=== PATIENT | male | born 1985 | race Caucasian/White ===

== ENCOUNTER 2018-12-28 15:52 | Outpatient (REF) | payer OTHER, SELFPAY ==
[2018-12-28 18:45] LABS: HCT 41.4 % (40.0-50.0); HGB 14.1 g/dL (13.5-17.5); Mean Corp. HGB Concentration 34.1 g/dL (32.0-36.0); Mean Corpuscular Hemoglobin 31.8 pg (27.0-33.0); Mean Corpuscular Volume 93.5 fL (80-95); Platelet Count 148 x1000/uL (130-400); RBC 4.43 m/cumm (4.50-6.00); RBC Distribution Width 12.8 % (11.8-14.1); White Blood Cell Count 5.46 k/cumm (4.4-10.8)
[2018-12-28 19:08] LABS: ALT 34 U/L (12-78); AST 49 U/L (15-37); Albumin 4.5 g/dL (3.4-5.0); Alkaline Phosphatase 67 U/L (46-116); Anion Gap 9.7 mmol/L (3-11); BUN 15 mg/dL (7-18); Bilirubin, Total 0.7 mg/dL (0.2-1.0); CO2 26.3 mmol/L (21.0-32.0); CREATININE 0.98 mg/dL (0.70-1.30); Calcium 9.1 mg/dL (8.5-10.1); Chloride 105 mmol/L (98-107); Glucose 89 mg/dL (70-100); Potassium 4.4 mmol/L (3.5-5.1); Sodium 141 mmol/L (136-145); TSH (W/Ref FT4) 1.09 uIU/mL (0.358-3.74); Total Protein 7.9 g/dL (6.4-8.2)
[2018-12-31 13:00] LABS: Hepatitis B Surface Ag Negative (NEGAT)
[2018-12-31 13:07] LABS: HIV-1/2 Ag & Ab Screen Negative (NEGAT)
[2018-12-31 13:08] LABS: Hepatitis C Ab w Rflx HCV PCR Reactive (NEGAT)
== END 2018-12-28 16:12 ==
LOC: NCHCN 15:52
PROVIDERS: PCP Family Medicine; Visit Provider Family Medicine
DX: R53.83 Other fatigue (principal); R74.8 Abnormal levels of other serum enzymes; F11.20 Opioid dependence, uncomplicated; Z11.59 Encounter for screening for other viral diseases; Z11.4 Encounter for screening for human immunodeficiency virus [HIV]
CPT/HCPCS: 80053; 85027; 86803; 87340; 87389; 84443; 87522

== ENCOUNTER 2019-01-03 07:01 | Outpatient (CLI) | payer OTHER, SELFPAY ==
--- NOTE | 2019-01-03 09:00 | DI.RAD_ITS ---
SYMPTOM/DIAGNOSIS: CHRONIC LOW BACK PAIN, M54.5 LUMBAR SPINE: AP, lateral and bilateral oblique views. No priors. There are five lumbar type vertebral bodies. There is normal alignment. No spondylolysis or spondylolisthesis is seen. The vertebral bodies, disc spaces and posterior elements are well maintained. The bones are normally mineralized. IMPRESSION: Normal examination.
== END 2019-01-03 07:21 ==
PROVIDERS: PCP Family Medicine; Visit Provider Family Medicine
DX: M54.5 Low back pain (principal)
CPT/HCPCS: 72110

== ENCOUNTER 2019-01-23 15:34 | Outpatient (REF) | payer OTHER, SELFPAY ==
[2019-01-25 10:31] LABS: HBs Antibody, Quant 191.1 mIU/mL; Hep A Total Ab w Rflx IgM Negative (NEGAT); Hep B Core Antibody Negative (NEGAT); Hepatitis B Surface Ab Positive
[2019-01-25 18:04] LABS: HCV Genotype 1a (Undetected)
== END 2019-01-23 15:54 ==
LOC: NCHCN 15:34
PROVIDERS: PCP Family Medicine; Visit Provider Family Medicine
DX: B18.2 Chronic viral hepatitis C (principal)
CPT/HCPCS: 82172; 82247; 82977; 83010; 83883; 84460; 86704; 86706; 86709; 87521

== ENCOUNTER 2019-02-20 16:06 | Outpatient (REF) | payer OTHER, SELFPAY ==
[2019-02-23 10:25] LABS: ALT 79 U/L (7-55); ActiTest Grade A1-A2; ActiTest Interpretation minimal activity; ActiTest Score 0.45; Alpha-2-Macroglobulin 204 mg/dL (100 - 280); Apoliprotein A1 157 mg/dL (>=120); Bilirubin, Total 0.7 mg/dL (<=1.2); FibroTest Interpretation no fibrosis; FibroTest Score 0.26; FibroTest Stage F0-F1; GGT 45 U/L (8 - 61); Haptoglobin 73 mg/dL (30 - 200)
== END 2019-02-20 16:26 ==
LOC: NCHCN 16:06
PROVIDERS: PCP Family Medicine; Visit Provider Family Medicine
DX: B18.2 Chronic viral hepatitis C (principal)
CPT/HCPCS: 82172; 82247; 82977; 83010; 83883; 84460

== ENCOUNTER 2019-06-05 14:11 | Outpatient (REF) | payer OTHER, SELFPAY ==
[2019-06-05 19:59] LABS: ALT 15 U/L (12-78); AST 18 U/L (15-37); Albumin 4.6 g/dL (3.4-5.0); Alkaline Phosphatase 69 U/L (46-116); Anion Gap 7.4 mmol/L (3-11); BUN 11 mg/dL (7-18); Bilirubin, Total 0.9 mg/dL (0.2-1.0); CO2 29.6 mmol/L (21.0-32.0); CREATININE 0.96 mg/dL (0.70-1.30); Calcium 9.6 mg/dL (8.5-10.1); Chloride 105 mmol/L (98-107); Glucose 103 mg/dL (70-100); Potassium 4.4 mmol/L (3.5-5.1); Sodium 142 mmol/L (136-145); Total Protein 7.7 g/dL (6.4-8.2)
[2019-06-05 20:04] LABS: HCT 41.6 % (40.0-50.0); HGB 14.3 g/dL (13.5-17.5); Mean Corp. HGB Concentration 34.4 g/dL (32.0-36.0); Mean Corpuscular Hemoglobin 31.9 pg (27.0-33.0); Mean Corpuscular Volume 92.9 fL (80-95); Mean Platelet Volume 12.4 fL (8.0-11.0); Platelet Count 139 x1000/uL (130-400); RBC 4.48 m/cumm (4.50-6.00); White Blood Cell Count 4.44 k/cumm (4.4-10.8)
[2019-06-08 08:15] LABS: HCV RNA Detection Quantitative Undetected IU/mL (UNDECT)
== END 2019-06-05 14:31 ==
LOC: NCHCN 14:11
PROVIDERS: PCP Family Medicine; Visit Provider Family Medicine
DX: B18.2 Chronic viral hepatitis C (principal)
CPT/HCPCS: 80053; 85027; 87522

== ENCOUNTER 2019-10-09 18:00 | Outpatient (REF) | payer OTHER, SELFPAY ==
[2019-10-09 16:54] LABS: HCT 42.8 % (40.0-50.0); HGB 14.3 g/dL (13.5-17.5); Mean Corp. HGB Concentration 33.4 g/dL (32.0-36.0); Mean Corpuscular Hemoglobin 31.6 pg (27.0-33.0); Mean Corpuscular Volume 94.7 fL (80-95); Mean Platelet Volume 11.9 fL (8.0-11.0); Platelet Count 145 x1000/uL (130-400); RBC 4.52 m/cumm (4.50-6.00); RBC Distribution Width 13.1 % (11.8-14.1); White Blood Cell Count 5.03 k/cumm (4.4-10.8)
[2019-10-09 17:09] LABS: ALT 20 U/L (16-63); AST 18 U/L (15-37); Albumin 4.5 g/dL (3.4-5.0); Alkaline Phosphatase 59 U/L (46-116); BUN 15 mg/dL (7-18); Bilirubin, Total 0.5 mg/dL (0.2-1.0); CREATININE 0.91 mg/dL (0.70-1.30); Calcium 9.1 mg/dL (8.5-10.1); Chloride 105 mmol/L (98-107); Glucose 81 mg/dL (74-106); Potassium 4.3 mmol/L (3.5-5.1); Sodium 143 mmol/L (136-145); Total Protein 7.7 g/dL (6.4-8.2)
[2019-10-14 11:48] LABS: Hepatitis C Ab w Rflx HCV PCR Reactive (Negative)
[2019-10-15 14:34] LABS: HCV RNA Detection Quantitative 0 IU/mL (Undetected)
== END 2019-10-09 18:20 ==
LOC: NCHCN 18:00
PROVIDERS: PCP Family Medicine; Visit Provider Family Medicine
DX: B18.2 Chronic viral hepatitis C (principal)
CPT/HCPCS: 80053; 85027; 86803; 87522

== ENCOUNTER 2022-10-20 09:55 | Outpatient (CLI) | payer MEDICAID, SELFPAY ==
--- NOTE | 2022-10-20 09:45 | RT.EKG_ITS ---
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
== END 2022-10-20 09:56 | disposition home or self-care (01) ==
PROVIDERS: PCP Family Medicine; Visit Provider Family Medicine
DX: Z79.899 Other long term (current) drug therapy (principal)
CPT/HCPCS: 93005; 93010